=== PATIENT | female | born 2000 | race Caucasian/White ===

== ENCOUNTER 2021-11-13 13:14 | Outpatient (CLI) | payer MEDICAID, SELFPAY ==
[2021-11-13 14:40] LABS: Estmated Average Glucose 134; Hemoglobin A1C 6.3 % (4.0-6.0)
[2021-11-13 14:51] LABS: Thyroid Stimulating Hormone 4.36 uIU/mL (0.27-4.20)
[2021-11-16 14:08] LABS: Insulin ( Reference Lab Test) 104.4 uIU/mL
== END 2021-11-13 13:15 | disposition home or self-care (01) ==
LOC: LAB 13:18
PROVIDERS: Visit Provider Obstetrics & Gynecology
DX: N92.6 Irregular menstruation, unspecified (principal)
CPT/HCPCS: 83036; 83525; 84443

== ENCOUNTER 2021-11-20 08:58 | Outpatient (CLI) | payer MEDICAID, SELFPAY ==
--- NOTE | 2021-11-20 09:34 | XR_ITS ---
WS: [id number] XR KUB [id number] REASON FOR EXAM: Kidney Stones FINDINGS: No urinary tract calculi are identified. Submillimeter calculi in the left kidney on previous CT scan . No other significant abdominal or pelvic abnormality is identified. XR/XR KUB [id number] IMPRESSION: No urinary tract calculi identified.
== END 2021-11-20 08:59 | disposition home or self-care (01) ==
LOC: RAD 09:02
PROVIDERS: Visit Provider Urology
DX: N20.0 Calculus of kidney (principal); N20.9 Urinary calculus, unspecified
CPT/HCPCS: 74018; 99203

== ENCOUNTER → 2021-12-02 16:03 | Outpatient (BNVA) | payer MEDICAID, SELFPAY | PROVIDERS: Visit Provider Urology | DX: N20.0 Calculus of kidney (principal); N20.9 Urinary calculus, unspecified | CPT/HCPCS: 81003 ==